=== PATIENT | female | born 1940 | race Caucasian/White ===

== ENCOUNTER 2018-09-23 11:06 | Outpatient (CLI) | payer MEDICARE ==
--- NOTE | 2018-09-23 12:29 | BD ---
DEXA BONE DENSITOMETRY: (Dual energy X-ray Absorptiometry) 09/23/2018 HISTORY: A 77-year-old postmenopausal white female for baseline, age-related osteoporosis screening examinatio n. Height 62 in. Weight 140 lbs. Age of menopause 34 years. COMPARISON: None available. FINDINGS: The bone mineral density (BMD) is given in grams per square centimeter (g/cm2): LUMBAR SPINE: BMD(g/cm2) T-score Z-score L1: 1.011 0.2 2.5 L2: 1.198 1.5 4.2 L3: 1.314 2.1 4.8 L4: 1.478 3.8 6.6 Total: 1.251 1.9 4.5 HIP: Femoral neck: 0.598 -2.3 0.0 Total: 0.890 -0.4 1.6 FRAX WHO Fracture Risk Assessment Tool: 10 Year Fracture Risk * Major osteoporotic fracture: 41% Hip fracture: 29% Reported Risk Factors: [place](), Neck BMD=0.598, BMI=25.6, parental factor, and rheumatoid arthritis. * Fracture probability is calculated for an untreated patient. Fracture probability may be lower if the patient has received treatment. IMPRESSION: 1) The mean bone mineral density of the lumbar spine is normal. Fracture risk is not increased. 2) The bone mineral density of the femoral neck is osteopenic. Fracture risk is increased. LUCY Barr POS: [facility]
== END 2018-09-23 11:07 | disposition home or self-care (01) ==
LOC: BICMAMMO 11:06
PROVIDERS: ATTEND Family Medicine
DX: Z13.820 Encounter for screening for osteoporosis (principal); M85.859 Other specified disorders of bone density and structure, unspecified thigh; Z78.0 Asymptomatic menopausal state
CPT/HCPCS: 77080

== ENCOUNTER 2018-10-22 14:02 | Emergency (ER) | payer MEDICARE ==
[2018-10-22 16:33] LABS: #Basophils 0.1 thou/uL (0.0-0.2); #Eosinphils 0.1 thou/uL (0.0-0.7); #Lymphocytes 1.4 thou/uL (1.20-3.40); #Monocytes 0.8 thou/uL (0.11-0.59); #Neutrophils 3.3 thou/uL (1.40-6.50); %Basophils 1.3 % (0.0-1.0); %Lymphocytes 24.2 % (21.0-51.0); %Monocytes 13.7 % (0.0-10.0); %Neutrophils 58.8 % (42.0-75.0); Hemoglobin 12.9 g/dL (12.0-16.0); Mean Corpuscular HGB CONC 32.6 g/dL (32.0-36.0); Mean Corpuscular Hemoglobin 32.3 pg (27.0-31.0); Mean Corpuscular Volume 99.3 fL (78.0-98.0); Mean Platelet Volume 6.3 fL (7.4-10.4); Platelet Count 169 thou/uL (130-400); RBC Distribution Width 13.3 % (11.5-14.5); Red Blood Cell (RBC) Count 3.99 mill/uL (4.20-5.40); White Blood Cell (WBC) Count 5.7 thou/uL (4.8-10.8)
[2018-10-22 16:53] LABS: ALT (SGPT) 11 U/L (8-55); AST (SGOT) 22 U/L (5-34); Albumin 4.3 g/dL (3.4-4.8); Alkaline Phosphatase 63 U/L (40-150); Anion Gap 16 mmol/L (10-20); BUN (Urea Nitrogen) 16 mg/dL (9.8-20.1); Bilirubin, Total 0.4 mg/dL (0.2-1.2); Calc. Creatinine Clearance 0 mL/min (70-130); Calcium 10.5 mg/dL (7.8-10.44); Carbon Dioxide 25 mmol/L (23-31); Chloride 103 mmol/L (98-107); Estimated GFR-MDRD 65; Globulin 3.5 g/dL (2.4-3.5); Glucose 104 mg/dL (83-110); Potassium 4.5 mmol/L (3.5-5.1); Protein, Total 7.8 g/dL (6.0-8.3); Sodium 139 mmol/L (136-145)
[2018-10-22 18:43] LABS: Bilirubin Negative (Negative); Blood, Urine Negative (Negative); Clarity CLEAR (Clear); Glucose, Urine (Dipstick) Negative (Negative); Leukocyte Trace (Negative); Nitrite Negative (Negative); Protein, Urine (Dipstick) Negative (Neg-Trace); Urobilinogen 0.2 mg/dL (0.2-1.0)
[2018-10-22 18:45] LABS: Bacteria/HPF None Seen HPF (None Seen); Hyaline Casts/LPF 0-3 HYALINE CAST LPF (0-3 Hyaline); Pathc Cast-AUWi Flag 0.87 (0-2.49); RBC/HPF 0-3 HPF (0-3); WBC/HPF 0-3 HPF (0-3)
== END 2018-10-22 19:34 | disposition home or self-care (01) ==
LOC: ERS 14:02
DX: R10.9 Unspecified abdominal pain (principal); M25.552 Pain in left hip; F41.9 Anxiety disorder, unspecified; E11.9 Type 2 diabetes mellitus without complications; E78.5 Hyperlipidemia, unspecified; J44.9 Chronic obstructive pulmonary disease, unspecified; I25.10 Atherosclerotic heart disease of native coronary artery without angina pectoris; I10 Essential (primary) hypertension; F32.9 Major depressive disorder, single episode, unspecified; Z87.891 Personal history of nicotine dependence; Z79.82 Long term (current) use of aspirin; Z79.899 Other long term (current) drug therapy
CPT/HCPCS: 36415; 80053; 81003; 81015; 85025; 93005; 99284

== ENCOUNTER 2019-02-18 17:35 | Emergency (ER) | payer MEDICARE ==
[2019-02-18] MEDS ORDERED: Ketorolac Tromethamine 30 MG/ML VIAL ONE (19:55)
--- NOTE | 2019-02-18 20:11 | RAD ---
Radiograph left humerus 2 views: HISTORY: 78-year-old female with left arm pain FINDINGS: Severe DJD at glenohumeral joint and moderate-severe DJD at AC joint. No fracture, permeative lesion, osteolytic lesion, osteoblastic lesion, or periostitis, involving humerus. IMPRESSION: Severe osteoarthrosis of the glenohumeral joint and moderate to severe osteoarthrosis of the acromioc lavicular joint, of the left shoulder.
--- NOTE | 2019-02-18 20:12 | RAD ---
Radiograph left shoulder 3 views: HISTORY: 78-year-old female with left shoulder pain FINDINGS: No acute fracture. No dislocation. No subluxation. Severe joint space narrowing, moderate sclerosis, and moderate osteophytosis, of glenohumeral joint. Bony hypertrophy of AC joint. IMPRESSION: 1. Severe osteoarthrosis of glenohumeral joint. 2. Moderate-severe osteoarthrosis of acromioclavicular joint. 3. No fracture.
== END 2019-02-18 20:35 | disposition home or self-care (01) ==
LOC: ERS 17:35
DX: M19.012 Primary osteoarthritis, left shoulder (principal); E11.9 Type 2 diabetes mellitus without complications; E78.5 Hyperlipidemia, unspecified; J44.9 Chronic obstructive pulmonary disease, unspecified; I10 Essential (primary) hypertension; F41.9 Anxiety disorder, unspecified; F32.9 Major depressive disorder, single episode, unspecified; Z79.899 Other long term (current) drug therapy; Z79.82 Long term (current) use of aspirin
CPT/HCPCS: 96372; J1885

== ENCOUNTER 2019-08-03 12:02 | Outpatient (CLI) | payer MEDICARE ==
--- NOTE | 2019-08-03 16:31 | RAD ---
CHEST TWO VIEWS: History: Cough for months, wheezing. Comparison: 11-19-18 FINDINGS: Post op sternotomy. 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 No confluent pneumonia, overt edema, or pleural effusion. No cardiomegaly. IMPRESSION: Mild stable chronic changes. Post op sternotomy. Atherosclerosis of the aorta. POS: [facility]
== END 2019-08-03 12:03 | disposition home or self-care (01) ==
LOC: BICRAD 12:02
PROVIDERS: ATTEND Family Medicine
DX: R05 Cough (principal); I70.0 Atherosclerosis of aorta; J98.4 Other disorders of lung; Z98.890 Other specified postprocedural states
CPT/HCPCS: 36415; 71046; 80053; 84443; 85025; 85652

== ENCOUNTER 2019-08-11 14:19 | Outpatient (CLI) | payer MEDICARE ==
--- NOTE | 2019-08-11 15:01 | RAD ---
EXAM: 3 views of the thoracic spine HISTORY: Thoracic spine pain COMPARISON: None FINDINGS: 3 views of the thoracic spine shows normal height and alignment of the vertebral bodies wit hout fracture or subluxation. Intervertebral there is are narrowed throughout the thoracic spine with mild surrounding osteophytes. IMPRESSION: Degenerative changes of the thoracic spine without acute osseous abnormality.
--- NOTE | 2019-08-11 15:07 | RAD ---
CERVICAL SPINE 7 VIEWS: HISTORY: Cervicalgia. FINDINGS: There is mild wedging of C6 vertebra which is chronic. Large osteophytes are seen at C6-7 and C7-T1. Loss of disk space at C6-7 and C7-T1 and mild loss of disk space at the other cervical levels. Sli ght anterolisthesis noted at C3-4, C4-5, and C5-6. Posterior spondylosis is prominent at C5-6 and C6-7. Facet hypertrophy is noted. Foraminal stenosis is prominent at C3-4 and C4-5. Anterolisthesis at C4-5 and C5-6 exacerbates with flexion. IMPRESSION: Moderate to severe degenerative changes of the cervical spine as detailed above. POS: [facility]
== END 2019-08-11 14:20 | disposition home or self-care (01) ==
LOC: BICRAD 14:19
PROVIDERS: ATTEND Internal Medicine Rheumatology
DX: M54.6 Pain in thoracic spine (principal); M54.2 Cervicalgia; M47.814 Spondylosis without myelopathy or radiculopathy, thoracic region; M47.812 Spondylosis without myelopathy or radiculopathy, cervical region
CPT/HCPCS: 72052; 72072

== ENCOUNTER 2019-08-13 10:25 | Outpatient (CLI) | payer MEDICARE ==
--- NOTE | 2019-08-13 11:00 | ULT ---
ULTRASOUND ABDOMEN: HISTORY: Epigastric pain FINDINGS: The liver demonstrates coarsened increased echogenicity consistent with fatty infiltration. No focal mass or intrahepatic ductal dilatation is seen. A 6 x 5 mm shadowing calculus is seen in the gallbladder without gallbladder wall thickening or pericholecystic fluid. The spleen, pancreas, kidneys and visualized portions of the aorta and IVC appear normal. The common duct measures 3 mm in diameter. No free fluid is seen. IMPRESSION: 1. Fatty liver 2. Cholelithiasis
== END 2019-08-13 10:26 | disposition home or self-care (01) ==
LOC: BICULT 10:25
PROVIDERS: ATTEND Family Medicine
DX: R10.13 Epigastric pain (principal); K80.20 Calculus of gallbladder without cholecystitis without obstruction; K76.0 Fatty (change of) liver, not elsewhere classified
CPT/HCPCS: 93975

== ENCOUNTER 2020-04-12 11:38 | Outpatient (CLI) | payer MEDICARE ==
--- NOTE | 2020-04-12 12:06 | RAD ---
XR Hip Rt 2-3 View INDICATION: Right hip pain after fall COMPARISON: None FINDINGS: Bones: There is mild diffuse osteopenia. There is enthesopathic change off the anterior right hemipel vis and right ischial tuberosity. No acute fracture is demonstrated. Hip joint: There is mild osteoarthrosis of the right hip. SI joints and symphysis pubis: There is moderate degenerative change of the right SI joint. There is chondrocalcinosis with is a symphysis pubis with mild degenerative change. Intrapelvic contents: Visualized bowel gas pattern is within normal limits. Surrounding soft tissues: There are moderate vascular calcifications seen involving the visualized vasculature. IMPRESSION: 1. No acute osseous abnormality.
== END 2020-04-12 11:39 | disposition home or self-care (01) ==
LOC: BICRAD 11:38
PROVIDERS: ATTEND Nurse Practitioner Family
DX: W17.89XA Other fall from one level to another, initial encounter (principal)

== ENCOUNTER 2020-08-01 12:57 | Emergency (ER) | payer MEDICARE ==
[2020-08-01 13:50] LABS: #Basophils 0.1 thou/uL (0.0-0.2); #Eosinphils 0.1 thou/uL (0.0-0.7); #Lymphocytes 1.2 thou/uL (1.20-3.40); #Monocytes 0.9 thou/uL (0.11-0.59); #Neutrophils 5.9 thou/uL (1.40-6.50); %Basophils 0.8 % (0.0-1.0); %Eosinophils 0.7 % (0.0-10.0); %Lymphocytes 14.6 % (21.0-51.0); %Neutrophils 72.9 % (42.0-75.0); Hemoglobin 11.3 g/dL (12.0-16.0); Mean Corpuscular Hemoglobin 33.2 pg (27.0-31.0); Mean Platelet Volume 8.4 fL (7.4-10.4); Platelet Count 223 thou/uL (130-400); RBC Distribution Width 12.6 % (11.5-14.5); Red Blood Cell (RBC) Count 3.39 mill/uL (4.20-5.40); White Blood Cell (WBC) Count 8.1 thou/uL (4.8-10.8)
[2020-08-01] MEDS ORDERED: Iopamidol-370 76% 500 ML 1 ML ONE (13:53)
[2020-08-01 14:17] LABS: ALT (SGPT) 10 U/L (8-55); AST (SGOT) 25 U/L (5-34); Albumin 3.9 g/dL (3.4-4.8); Alkaline Phosphatase 68 U/L (40-110); Anion Gap 21 mmol/L (10-20); BUN (Urea Nitrogen) 13 mg/dL (9.8-20.1); Bilirubin, Total 0.4 mg/dL (0.2-1.2); Calc. Creatinine Clearance 0 mL/min (70-130); Calcium 9.8 mg/dL (7.8-10.44); Carbon Dioxide 13 mmol/L (23-31); Chloride 107 mmol/L (98-107); Estimated GFR-MDRD 48; Globulin 3.1 g/dL (2.4-3.5); Glucose 71 mg/dL (83-110); Lipase 4 U/L (8-78); Potassium 4.2 mmol/L (3.5-5.1); Sodium 137 mmol/L (136-145)
--- NOTE | 2020-08-01 16:49 | CT ---
CT ABDOMEN AND PELVIS WITH IV CONTRAST: Date: 08/01/2020 HISTORY: 79-year-old female with abdominal pain and diarrhea. FINDINGS: There are mild dependent changes in the lung bases. No calcified gallstones are seen. The liver, sple en, pancreas, adrenal glands, and kidneys are unremarkable. No free air, free fluid, or lymphadenopathy is seen in the abdomen or pelvis. There are vascular calc ifications without evidence of aneurysmal dilatation of the abdominal aorta. The patient is post hyst erectomy. Degenerative changes are present in the spine. There is minimal anterolisthesis of L5 over S1. An abnormal appendix is not visualized. IMPRESSION: No evidence of acute process. POS: [facility]
[2020-08-01 17:03] LABS: Acetaminophen Less than 6.0 mcg/mL (10.0-30.0); Alcohol Less than 10 mg/dL (Less than 10); Salicylate Less than 8.0 mg/dL (15.0-30.0)
[2020-08-01 17:07] LABS: Bilirubin Negative (Negative); Blood, Urine Negative (Negative); Clarity Clear (Clear); Glucose, Urine (Dipstick) Normal (Negative); Ketone, Urine 10 mg/dL (Negative); Leukocyte Negative Leu/uL (Negative); Nitrite Negative (Negative); Protein, Urine (Dipstick) 10 mg/dL (Neg-Trace); Specific Gravity, Urine 1.034 (1.002-1.036); Urobilinogen Normal mg/dL (Less than 2); pH, Urine 5.5 (5.0-9.0)
[2020-08-01 17:13] LABS: Amphetamine Not Detected (NotDetected); Barbiturates Screen Not Detected (NotDetected); Benzodiazepine Screen Not Detected (NotDetected); Cocaine Metabolite Screen Not Detected (NotDetected); Medtox Control Line Valid? VALID (VALID); Medtox Reader # READER 1; Methadone Not Detected (NotDetected); Methamphetamine Not Detected (NotDetected); Opiate Screen Not Detected (NotDetected); Oxycodone Screen Not Detected (NotDetected); Phencyclidine (PCP) Not Detected (NotDetected); THC/Cannabinoid Screen Not Detected (NotDetected); Tricyclic Screen Not Detected (NotDetected)
--- NOTE | 2020-08-27 13:04 | EKG ---
Test Reason : Blood Pressure : / mmHG Vent. Rate : 086 BPM Atrial Rate : 086 BPM P-R Int : 144 ms QRS Dur : 082 ms QT Int : 356 ms P-R-T Axes : 051 053 047 degrees QTc Int : 426 ms Normal sinus rhythm Normal ECG Confirmed by RENETTA ROBERT DO ([id number]), senior editor ROSITA ORTIZ ([id number]) on 08/27/2020 1:04:07 PM Referred By: Confirmed By:RENETTA ROBERT DO
== END 2020-08-01 20:39 | disposition home or self-care (01) ==
LOC: ERS 12:57
DX: R19.7 Diarrhea, unspecified (principal); F32.9 Major depressive disorder, single episode, unspecified; E11.9 Type 2 diabetes mellitus without complications; E78.5 Hyperlipidemia, unspecified; M06.9 Rheumatoid arthritis, unspecified; J44.9 Chronic obstructive pulmonary disease, unspecified; I10 Essential (primary) hypertension; F41.9 Anxiety disorder, unspecified; Z87.891 Personal history of nicotine dependence; Z79.82 Long term (current) use of aspirin; Z79.899 Other long term (current) drug therapy
CPT/HCPCS: 36415; 51701; 74177; 80053; 80306; 80307; 81003; 83690; 84484; 85025; 87045; 87046; 87324; 87427; 87449; 93005; 94760; Q9967

== ENCOUNTER 2020-10-12 03:01 | Emergency (ER) | payer MEDICARE ==
[2020-10-12 03:47] LABS: #Eosinphils 0.1 thou/uL (0.0-0.7); #Lymphocytes 1.2 thou/uL (1.20-3.40); #Monocytes 1.1 thou/uL (0.11-0.59); #Neutrophils 5.9 thou/uL (1.40-6.50); %Basophils 0.5 % (0.0-1.0); %Eosinophils 1.2 % (0.0-10.0); %Lymphocytes 14.5 % (21.0-51.0); %Monocytes 13.3 % (0.0-10.0); %Neutrophils 70.5 % (42.0-75.0); Hemoglobin 7.8 g/dL (12.0-16.0); Mean Corpuscular Hemoglobin 31.3 pg (27.0-31.0); Mean Platelet Volume 8.2 fL (7.4-10.4); Platelet Count 231 thou/uL (130-400); RBC Distribution Width 15.7 % (11.5-14.5); White Blood Cell (WBC) Count 8.4 thou/uL (4.8-10.8)
[2020-10-12 04:07] LABS: ALT (SGPT) 13 U/L (8-55); AST (SGOT) 22 U/L (5-34); Albumin 3.1 g/dL (3.4-4.8); Alkaline Phosphatase 52 U/L (40-110); Anion Gap 16 mmol/L (10-20); BUN (Urea Nitrogen) 16 mg/dL (9.8-20.1); Bilirubin, Total 0.4 mg/dL (0.2-1.2); Calc. Creatinine Clearance 0 mL/min (70-130); Calcium 7.6 mg/dL (7.8-10.44); Carbon Dioxide 22 mmol/L (23-31); Chloride 103 mmol/L (98-107); Globulin 2.8 g/dL (2.4-3.5); Glucose 92 mg/dL (83-110); Potassium 3.7 mmol/L (3.5-5.1); Protein, Total 5.9 g/dL (6.0-8.3); Sodium 137 mmol/L (136-145)
[2020-10-12 04:30] LABS: Bilirubin Negative (Negative); Blood, Urine Negative (Negative); Clarity Clear (Clear); Glucose, Urine (Dipstick) Normal (Negative); Ketone, Urine Negative (Negative); Leukocyte Negative Leu/uL (Negative); Nitrite Negative (Negative); Protein, Urine (Dipstick) Negative (Neg-Trace); Specific Gravity, Urine 1.009 (1.002-1.036); Urobilinogen Normal mg/dL (Less than 2); pH, Urine 6.5 (5.0-9.0)
[2020-10-12] MEDS ORDERED: Diphenoxylate HCl/Atropine Tablet PO PRN (04:31)
[2020-10-12] MEDS ORDERED: Diphenoxylate HCl/Atropine Tablet ONE (05:34)
== END 2020-10-12 06:32 ==
LOC: ERS 03:01
DX: K52.9 Noninfective gastroenteritis and colitis, unspecified (principal); E86.0 Dehydration; E11.9 Type 2 diabetes mellitus without complications; E78.5 Hyperlipidemia, unspecified; M06.9 Rheumatoid arthritis, unspecified; J44.9 Chronic obstructive pulmonary disease, unspecified; E03.9 Hypothyroidism, unspecified; Z87.891 Personal history of nicotine dependence
CPT/HCPCS: 36415; 80053; 81003; 85025; 99284

== ENCOUNTER 2020-11-02 17:32 | Emergency (ER) | payer MEDICARE ==
[2020-11-02 21:14] LABS: #Basophils 0.1 thou/uL (0.0-0.2); #Lymphocytes 0.5 thou/uL (1.20-3.40); #Monocytes 0.9 thou/uL (0.11-0.59); #Neutrophils 7.9 thou/uL (1.40-6.50); %Basophils 0.5 % (0.0-1.0); %Lymphocytes 5.6 % (21.0-51.0); %Monocytes 9.1 % (0.0-10.0); %Neutrophils 84.7 % (42.0-75.0); Hemoglobin 9.7 g/dL (12.0-16.0); Mean Corpuscular HGB CONC 32.1 g/dL (32.0-36.0); Mean Corpuscular Hemoglobin 31.7 pg (27.0-31.0); Mean Corpuscular Volume 98.9 fL (78.0-98.0); Mean Platelet Volume 9.1 fL (7.4-10.4); Platelet Count 274 thou/uL (130-400); RBC Distribution Width 18.1 % (11.5-14.5); Red Blood Cell (RBC) Count 3.07 mill/uL (4.20-5.40); White Blood Cell (WBC) Count 9.3 thou/uL (4.8-10.8)
[2020-11-02 21:35] LABS: ALT (SGPT) 15 U/L (8-55); AST (SGOT) 24 U/L (5-34); Albumin 3.7 g/dL (3.4-4.8); Alkaline Phosphatase 60 U/L (40-110); Anion Gap 19 mmol/L (10-20); BUN (Urea Nitrogen) 25 mg/dL (9.8-20.1); Bilirubin, Total 0.4 mg/dL (0.2-1.2); Calc. Creatinine Clearance 0 mL/min (70-130); Calcium 9.5 mg/dL (7.8-10.44); Carbon Dioxide 20 mmol/L (23-31); Chloride 106 mmol/L (98-107); Globulin 3.2 g/dL (2.4-3.5); Glucose 139 mg/dL (83-110); Potassium 4.2 mmol/L (3.5-5.1); Protein, Total 6.9 g/dL (6.0-8.3); Sodium 141 mmol/L (136-145)
[2020-11-02 22:12] LABS: Bacteria/HPF None Seen HPF (None Seen); Bilirubin Negative (Negative); Blood, Urine Negative (Negative); Clarity Clear (Clear); Glucose, Urine (Dipstick) Normal (Negative); Ketone, Urine Trace mg/dL (Negative); Leukocyte Negative Leu/uL (Negative); Nitrite Negative (Negative); Protein, Urine (Dipstick) 70 mg/dL (Neg-Trace); RBC/HPF 0-3 HPF (0-3); Renal Epithelial 0-3 HPF (None Seen); Specific Gravity, Urine 1.027 (1.002-1.036); Squamous Epithelial 0-3 HPF (0-3); Urobilinogen Normal mg/dL (Less than 2); WBC/HPF 0-3 HPF (0-3); pH, Urine 5.5 (5.0-9.0)
--- NOTE | 2020-11-05 10:10 | EKG ---
Test Reason : Blood Pressure : / mmHG Vent. Rate : 088 BPM Atrial Rate : 088 BPM P-R Int : 142 ms QRS Dur : 074 ms QT Int : 338 ms P-R-T Axes : 032 038 088 degrees QTc Int : 408 ms Normal sinus rhythm Nonspecific T wave abnormality Abnormal ECG Confirmed by TAWNYA JACK, ALESSANDRO Horvath ([id number]), industrial editor ROSITA ORTIZ ([id number]) on 11/05/2020 10:10:11 AM Referred By: Confirmed By:ALESSANDRO BOWLING MD
== END 2020-11-02 23:23 | disposition home or self-care (01) ==
LOC: ERS 17:32
DX: E86.0 Dehydration (principal); E03.9 Hypothyroidism, unspecified; I10 Essential (primary) hypertension; J45.909 Unspecified asthma, uncomplicated; Z95.1 Presence of aortocoronary bypass graft; Z87.891 Personal history of nicotine dependence
CPT/HCPCS: 36415; 51701; 80053; 81003; 81015; 85025; 87324; 87449; 93005

== ENCOUNTER 2020-12-11 00:25 | Emergency (ER) | payer MEDICARE ==
[2020-12-11] MEDS ORDERED: Ketorolac Tromethamine 30 MG/ML VIAL ONE (03:16)
--- NOTE | 2020-12-11 08:38 | RAD ---
XR Hip Lt 2-3 View History: Back pain Comparison: None. Findings: Obturator rings are intact. Enthesopathic change along the left greater trochanter. Soft ti ssue calcifications of the left 5. Asymmetric narrowing right SI joint relative to the left with sclerosis. Impression: Degenerative findings. No acute fracture of the pelvis.
--- NOTE | 2020-12-11 10:29 | CT ---
PRELIMINARY REPORT/[facility]/EMERGENCY AFTER HOURS PROCEDURE: EXAM: CT Lumbar Spine Without Intravenous Contrast. CLINICAL HISTORY: BACK PAIN TECHNIQUE: Axial computed tomography images of the lumbar spine without intravenous contrast. Sagitta l and coronal reformations performed. COMPARISON: None provided. FINDINGS: BONES: No acute fracture or focal osseous lesion. DISCS/DEGENERATIVE CHANGES: Multilevel degenerative changes of the lower lumbar spine with severe los s of intervertebral disc from L2/3 through L5/S1, calcified disc bulges and anterior-posterior osteop hytes. Grade 1 anterolisthesis of L5 and S1. Multilevel partially calcified disc bulges and ligamen ciarra hypertrophy cause severe canal stenosis from L1/2 through L5/S1. SOFT TISSUES: The paraspinal soft tissues are unremarkable. IMPRESSION: No acute lumbar spine fracture. Chronic findings as described above with severe canal st enosis throughout the lower lumbar spine. 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 FINDINGS: The vertebral bodies are normal in height. Bones are diffusely demineralized. There is severe degen erative disk narrowing from the L2-3 to the L5-S1 level. Prominent degenerative facet changes are se en. There is no significant periaortic adenopathy and the visualized portions of the kidneys appear unremarkable. Suggestion of some slight bladder wall thickening. T12-L1: Unremarkable. L1-2: The canal appears mildly stenotic with disk bulge and facet hypertrophic change. L2-3: There is a moderate degree of canal stenosis with disk bulge, facet, and ligamentous hypertrop hic change. There is also some mild to moderate left-sided foraminal narrowing. Below the level of the disk space is what appears to be a combination of osteophytic change and what is probably calcifi ed disk which may represent disk protrusion. This is associated with a more severe degree of canal n arrowing than seen at the disk level itself. L3-4: Disk bulge and facet hypertrophic change at this level is associated with a very severe degree of canal narrowing. There is moderate left-sided foraminal stenosis. L4-5: Severe stenosis with disk bulge, facet, and ligamentous hypertrophic changes seen at this leve l. No significant foraminal narrowing. L5-S1: Minimal spondylolisthesis present at this level. Severe canal stenosis and mild bilateral fo raminal narrowing. IMPRESSION: 1. No evidence of any acute compression injury. Multilevel areas of severe canal stenosis. 2. This report is in agreement with the temporary report issued by [facility]. POS: [facility]
== END 2020-12-11 04:07 ==
LOC: ERS 00:25
DX: M54.42 Lumbago with sciatica, left side (principal); M25.552 Pain in left hip; E03.9 Hypothyroidism, unspecified; I10 Essential (primary) hypertension; J44.9 Chronic obstructive pulmonary disease, unspecified; K21.9 Gastro-esophageal reflux disease without esophagitis; J45.909 Unspecified asthma, uncomplicated; I25.10 Atherosclerotic heart disease of native coronary artery without angina pectoris; Z95.1 Presence of aortocoronary bypass graft; M19.90 Unspecified osteoarthritis, unspecified site; Z87.891 Personal history of nicotine dependence
CPT/HCPCS: 72131; 96372; J1885

== ENCOUNTER 2021-05-12 11:14 | Day surgery (SDC) | payer MEDICARE ==
[2021-05-11 11:33] VITALS: BMI 25.0
[2021-05-12] MEDS ORDERED: Lidocaine 1% PF 5 ML VIAL ONE (13:30)
[2021-05-12] MEDS ORDERED: PROPOFOL 200 MG/20 ML VIAL ONE (13:30)
[2021-05-12] MEDS ORDERED: Fentanyl 100 MCG/2 ML VIAL ONE (14:26)
[2021-05-12] MEDS ORDERED: Albuterol Sulfate 1.25 MG/3 ML NEB ONE (15:13)
== END 2021-05-12 16:29 | disposition home or self-care (01) ==
LOC: MRI 11:14
PROVIDERS: ATTEND Anesthesiology Pain Medicine
DX: M51.16 Intervertebral disc disorders with radiculopathy, lumbar region (principal); M48.05 Spinal stenosis, thoracolumbar region; M48.061 Spinal stenosis, lumbar region without neurogenic claudication; M43.16 Spondylolisthesis, lumbar region; Z79.82 Long term (current) use of aspirin; Z79.899 Other long term (current) drug therapy; Z88.8 Allergy status to other drugs, medicaments and biological substances
CPT/HCPCS: 72148; J3010

== ENCOUNTER 2021-06-07 23:43 | Emergency (ER) | payer MEDICARE, SELFPAY ==
[2021-06-08] MEDS ORDERED: Aspirin Chewable 81 MG TAB ONE (00:09)
[2021-06-08] MEDS ORDERED: methylPREDNISolone Sod Succ/PF 125 MG/2 ML VIAL ONE (00:09)
[2021-06-08 00:20] LABS: Mean Corpuscular HGB CONC 32.6 g/dL (32.0-36.0); Mean Corpuscular Hemoglobin 32.7 pg (27.0-31.0); Mean Platelet Volume 9.8 fL (7.4-10.4); Platelet Count 142 thou/uL (130-400); RBC Distribution Width 14.4 % (11.5-14.5); Red Blood Cell (RBC) Count 3.35 mill/uL (4.20-5.40); White Blood Cell (WBC) Count 6.7 thou/uL (4.8-10.8)
[2021-06-08 00:32] LABS: ALT (SGPT) 13 U/L (8-55); AST (SGOT) 23 U/L (5-34); Albumin 3.6 g/dL (3.4-4.8); Alkaline Phosphatase 69 U/L (40-110); Anion Gap 16 mmol/L (10-20); BUN (Urea Nitrogen) 28 mg/dL (9.8-20.1); Bilirubin, Total 0.3 mg/dL (0.2-1.2); Calc. Creatinine Clearance 0 mL/min (70-130); Calcium 9.6 mg/dL (7.8-10.44); Carbon Dioxide 22 mmol/L (23-31); Chloride 103 mmol/L (98-107); Glucose 115 mg/dL (83-110); Potassium 4.4 mmol/L (3.5-5.1); Protein, Total 6.6 g/dL (5.8-8.1); Sodium 137 mmol/L (136-145)
[2021-06-08 00:36] LABS: Band 1 % (5-11); Lymphocytes 25 % (21-51); MDiff Complete? YES; Monocytes 14 % (0-10); Neutrophil 59 % (42-75)
[2021-06-08] MEDS ORDERED: Oxymetazoline HCl 0.05% (30 ML BOT) ONE (00:53)
== END 2021-06-08 01:31 | disposition home or self-care (01) ==
LOC: ERS 23:43
DX: R06.02 Shortness of breath (principal); R05 Cough; E03.9 Hypothyroidism, unspecified; E78.5 Hyperlipidemia, unspecified; I10 Essential (primary) hypertension; J44.9 Chronic obstructive pulmonary disease, unspecified; K21.9 Gastro-esophageal reflux disease without esophagitis; I25.10 Atherosclerotic heart disease of native coronary artery without angina pectoris; M19.90 Unspecified osteoarthritis, unspecified site; Z87.891 Personal history of nicotine dependence
CPT/HCPCS: 36415; 71045; 80053; 84484; 85025; 93005; 94640; 96374; J2930; J7620

== ENCOUNTER 2023-04-01 12:16 | Inpatient (IN) | payer MEDICARE ==
[2023-04-01 12:57] LABS: #Basophils 0.1 thou/uL (0.0-0.2); #Eosinphils 0.1 thou/uL (0.0-0.7); #Monocytes 1.2 thou/uL (0.11-0.59); #Neutrophils 6.9 thou/uL (1.40-6.50); %Basophils 0.7 % (0.0-1.0); %Eosinophils 1.2 % (0.0-10.0); %Lymphocytes 9.4 % (21.0-51.0); %Monocytes 13.4 % (0.0-10.0); %Neutrophils 74.9 % (42.0-75.0); Hemoglobin 8.4 g/dL (12.0-16.0); Mean Corpuscular HGB CONC 31.7 g/dL (32.0-36.0); Mean Corpuscular Hemoglobin 33.3 pg (27.0-31.0); Mean Corpuscular Volume 105.2 fl (78.0-98.0); Mean Platelet Volume 10.4 fL (7.4-10.4); Platelet Count 230 10x3/uL (130-400); RBC Distribution Width 15.5 % (11.5-14.5); Red Blood Cell (RBC) Count 2.52 mill/uL (4.20-5.40); White Blood Cell (WBC) Count 9.2 10x3/uL (4.8-10.8)
[2023-04-01 13:15] LABS: PTT 24.9 sec (22.9-36.1); Prothrombin Time 13.4 sec (12.0-14.7)
[2023-04-01 13:27] LABS: ALT (SGPT) 9 U/L (8-55); AST (SGOT) 17 U/L (5-34); Albumin 3.4 g/dL (3.4-4.8); Alkaline Phosphatase 63 U/L (40-110); Anion Gap 12 mmol/L (10-20); BUN (Urea Nitrogen) 18 mg/dL (9.8-20.1); Bilirubin, Total 0.2 mg/dL (0.2-1.2); Calc. Creatinine Clearance 0 mL/min (70-130); Calcium 9.1 mg/dL (7.8-10.44); Carbon Dioxide 28 mmol/L (23-31); Chloride 102 mmol/L (98-107); Estimated GFR 56; Globulin 2.7 g/dL (2.4-3.5); Glucose 116 mg/dL (83-110); Lipase 6 U/L (8-78); Magnesium 1.4 mg/dL (1.6-2.6); Potassium 3.5 mmol/L (3.5-5.1); Protein, Total 6.1 g/dL (5.8-8.1); Sodium 138 mmol/L (136-145)
[2023-04-01] MEDS ORDERED: Magnesium 2 GM/50 ML BAG (IN WATER) ONE (14:15)
[2023-04-01 16:40] LABS: Bacteria/HPF None Seen HPF (None Seen); Bilirubin Negative (Negative); Blood, Urine Negative (Negative); CAUTI Indications for Culture Urological Procedure; Clarity Clear (Clear); Glucose, Urine (Dipstick) Normal (Negative); Ketone, Urine Negative (Negative); Leukocyte Negative Leu/uL (Negative); Nitrite Negative (Negative); Protein, Urine (Dipstick) Negative (Neg-Trace); RBC/HPF 0-3 HPF (0-3); Squamous Epithelial 0-3 HPF (0-3); Urobilinogen Normal mg/dL (Less than 2); WBC/HPF 0-3 HPF (0-3)
[2023-04-01 16:51] LABS: Urine Culture Reflex Yes Yes
[2023-04-01] MEDS ORDERED: Polyethylene Glycol 3350 17 GM Packet PO PRN (17:09)
[2023-04-01] MEDS ORDERED: Albuterol 200 PUFF (6.7GM INHALER) INH PRN (17:09)
[2023-04-01] MEDS ORDERED: Ondansetron ODT 4 MG TAB PO PRN (17:09)
[2023-04-01 17:11] LABS: SARS-CoV-2 NAA Rapid Test Not Detected (NotDetected)
[2023-04-01] MEDS: Ipratropium/Albuterol 3 ML NEB NEB SCH (19:00)
[2023-04-01 19:07] LABS: Iron 34 ug/dL (50-170); Iron Binding Capacity, Total 199 mcg/dL (265-497)
[2023-04-01 19:26] LABS: Ferritin 456.91 ng/mL (10-291)
[2023-04-01 19:27] VITALS: BMI 23.2
[2023-04-01] MEDS: Acetaminophen 325 MG TAB PO SCH (19:58)
[2023-04-01] MEDS: Montelukast Sodium 10 mg Tablet PO SCH (20:00)
[2023-04-01] MEDS: Donepezil HCl 5 MG TAB PO SCH (20:00)
[2023-04-01] MEDS: Furosemide 20 MG TAB PO SCH (20:00)
[2023-04-01] MEDS: Latanoprost 0.005% Ophth Soln 2.5 ml Bottle EA EYE SCH (21:24)
[2023-04-02] MEDS: Ipratropium/Albuterol 3 ML NEB NEB SCH ×2 (00:20→09:21)
[2023-04-02] MEDS: Acetaminophen 325 MG TAB PO SCH ×5 (00:47→23:58)
[2023-04-02 07:00] LABS: #Basophils 0.1 thou/uL (0.0-0.2); #Eosinphils 0.1 thou/uL (0.0-0.7); #Neutrophils 7.7 thou/uL (1.40-6.50); %Basophils 0.7 % (0.0-1.0); %Eosinophils 1.1 % (0.0-10.0); %Lymphocytes 7.9 % (21.0-51.0); %Monocytes 10.2 % (0.0-10.0); %Neutrophils 79.8 % (42.0-75.0); Hemoglobin 9.1 g/dL (12.0-16.0); Mean Corpuscular HGB CONC 31.6 g/dL (32.0-36.0); Mean Corpuscular Hemoglobin 32.7 pg (27.0-31.0); Mean Corpuscular Volume 103.6 fl (78.0-98.0); Mean Platelet Volume 10.5 fL (7.4-10.4); Platelet Count 250 10x3/uL (130-400); RBC Distribution Width 15.4 % (11.5-14.5); Red Blood Cell (RBC) Count 2.78 mill/uL (4.20-5.40); White Blood Cell (WBC) Count 9.7 10x3/uL (4.8-10.8)
[2023-04-02 07:25] LABS: Anion Gap 13 mmol/L (10-20); BUN (Urea Nitrogen) 15 mg/dL (9.8-20.1); Calc. Creatinine Clearance 45 mL/min (70-130); Calcium 9.3 mg/dL (7.8-10.44); Carbon Dioxide 28 mmol/L (23-31); Chloride 104 mmol/L (98-107); Estimated GFR 68; Glucose 104 mg/dL (83-110); Potassium 3.5 mmol/L (3.5-5.1); Sodium 141 mmol/L (136-145)
[2023-04-02] MEDS ORDERED: Folic Acid 1 MG TAB PO SCH (09:00)
[2023-04-02] MEDS: Leflunomide 10 mg Tablet PO SCH (09:22)
[2023-04-02] MEDS: Furosemide 20 MG TAB PO SCH ×2 (09:22→19:59)
[2023-04-02] MEDS: Multivitamin W/ Minerals 1 TAB PO SCH (09:22)
[2023-04-02] MEDS: Sertraline 100 MG TAB PO SCH (09:22)
[2023-04-02] MEDS: CO Q-10 CAPSULE 100 MG PO SCH (09:22)
[2023-04-02] MEDS: Saccharomyces boulardii 250 MG CAP PO SCH (09:22)
[2023-04-02] MEDS: Valproic Acid 250 MG CAP PO SCH (09:22)
[2023-04-02] MEDS: sulfaSALAzine 500 MG TAB PO SCH (09:22)
[2023-04-02] MEDS: Aspirin Chewable 81 MG TAB PO SCH (09:22)
[2023-04-02] MEDS: Cyanocobalamin (Vitamin B-12) 1,000 MCG TAB PO SCH (09:22)
[2023-04-02] MEDS: Folic Acid 1 MG TAB PO SCH (09:23)
[2023-04-02] MEDS: Losartan 25 MG TAB PO SCH (09:23)
[2023-04-02] MEDS: Amlodipine 10 MG TAB PO SCH (09:23)
[2023-04-02] MEDS: Atorvastatin Calcium 40 MG TAB PO SCH (09:23)
[2023-04-02] MEDS: Meloxicam 15 MG TAB PO SCH (09:23)
[2023-04-02 10:13] LABS: Magnesium 1.8 mg/dL (1.6-2.6)
[2023-04-02] MEDS: Ipratropium Bromide 0.06% Nasal Inhaler 15ml EA NARE SCH (10:26)
[2023-04-02] MEDS ORDERED: Fidaxomicin 200 MG TAB PO SCH (12:45)
[2023-04-02 19:41] LABS: Campy jejuni + coli by PCR Negative (Negative); STEC Shiga Toxin 1+2 Negative (Negative); Salmonella spp. by PCR Negative (Negative); Shigella spp + EIEC by PCR Negative (Negative)
[2023-04-02] MEDS: Donepezil HCl 5 MG TAB PO SCH (19:59)
[2023-04-02] MEDS: Montelukast Sodium 10 mg Tablet PO SCH (19:59)
[2023-04-02] MEDS: Latanoprost 0.005% Ophth Soln 2.5 ml Bottle EA EYE SCH (19:59)
[2023-04-02] MEDS: Fidaxomicin 200 MG TAB PO SCH (21:15)
[2023-04-03] MEDS: Acetaminophen 325 MG TAB PO SCH ×5 (05:39→23:17)
[2023-04-03 06:20] LABS: Hemoglobin 9.6 g/dL (12.0-16.0); Manual Diff?? YES; Mean Corpuscular HGB CONC 31.4 g/dL (32.0-36.0); Mean Corpuscular Hemoglobin 33.1 pg (27.0-31.0); Mean Corpuscular Volume 105.5 fl (78.0-98.0); Mean Platelet Volume 10.5 fL (7.4-10.4); Platelet Count 244 10x3/uL (130-400); RBC Distribution Width 15.4 % (11.5-14.5); White Blood Cell (WBC) Count 4.9 10x3/uL (4.8-10.8)
[2023-04-03 06:23] LABS: Delete Auto Diff?? YES
[2023-04-03 06:40] LABS: Anion Gap 13 mmol/L (10-20); BUN (Urea Nitrogen) 12 mg/dL (9.8-20.1); Calc. Creatinine Clearance 48 mL/min (70-130); Calcium 9.4 mg/dL (7.8-10.44); Carbon Dioxide 27 mmol/L (23-31); Chloride 103 mmol/L (98-107); Estimated GFR 73; Glucose 101 mg/dL (83-110); Sodium 140 mmol/L (136-145)
[2023-04-03 06:56] LABS: Band 17 % (5-11); CellaVision Operator ID LAB.GE; Eosinophils 2 % (0-10); Hypochromia SLIGHT = 6-15 cells HPF (0-5); Lymphocytes 30 % (21-51); Macrocytosis SLIGHT = 6-15 cells HPF (0-5); Monocytes 14 % (0-10); Neutrophil 36 % (42-75); Platelet Adequacy Comment Platelets Normal; Polychromasia SLIGHT = 2-3 cells HPF (0-2); Total Cell Count 102
[2023-04-03] MEDS: Fidaxomicin 200 MG TAB PO SCH ×2 (08:02→20:33)
[2023-04-03] MEDS: sulfaSALAzine 500 MG TAB PO SCH (08:02)
[2023-04-03] MEDS: Cyanocobalamin (Vitamin B-12) 1,000 MCG TAB PO SCH (08:03)
[2023-04-03] MEDS: Furosemide 20 MG TAB PO SCH ×2 (08:04→20:31)
[2023-04-03] MEDS: Folic Acid 1 MG TAB PO SCH (08:04)
[2023-04-03] MEDS: Multivitamin W/ Minerals 1 TAB PO SCH (08:04)
[2023-04-03] MEDS: Losartan 25 MG TAB PO SCH (08:05)
[2023-04-03] MEDS: Leflunomide 10 mg Tablet PO SCH (08:05)
[2023-04-03] MEDS: Sertraline 100 MG TAB PO SCH (08:05)
[2023-04-03] MEDS: Aspirin Chewable 81 MG TAB PO SCH (08:06)
[2023-04-03] MEDS: Atorvastatin Calcium 40 MG TAB PO SCH (08:06)
[2023-04-03] MEDS: Amlodipine 10 MG TAB PO SCH (08:06)
[2023-04-03] MEDS: Saccharomyces boulardii 250 MG CAP PO SCH (08:06)
[2023-04-03] MEDS: CO Q-10 CAPSULE 100 MG PO SCH (08:06)
[2023-04-03] MEDS: Meloxicam 15 MG TAB PO SCH (08:09)
[2023-04-03] MEDS: Ipratropium Bromide 0.06% Nasal Inhaler 15ml EA NARE SCH (08:10)
[2023-04-03] MEDS: Valproic Acid 250 MG CAP PO SCH (08:11)
[2023-04-03] MEDS ORDERED: Potassium Chloride 20 MEQ TAB PO SCH (09:00)
[2023-04-03] MEDS ORDERED: Potassium Chloride 20 MEQ in Premix Bag 1 BAG IVPB SCH (11:00)
[2023-04-03 13:25] LABS: Anion Gap 11 mmol/L (10-20); BUN (Urea Nitrogen) 15 mg/dL (9.8-20.1); Calc. Creatinine Clearance 49 mL/min (70-130); Calcium 9.2 mg/dL (7.8-10.44); Carbon Dioxide 28 mmol/L (23-31); Chloride 105 mmol/L (98-107); Estimated GFR 75; Glucose 102 mg/dL (83-110); Potassium 3.7 mmol/L (3.5-5.1); Sodium 140 mmol/L (136-145)
[2023-04-03] MEDS: Latanoprost 0.005% Ophth Soln 2.5 ml Bottle EA EYE SCH (20:31)
[2023-04-03] MEDS: Donepezil HCl 5 MG TAB PO SCH (20:31)
[2023-04-03] MEDS: Montelukast Sodium 10 mg Tablet PO SCH (20:31)
[2023-04-04] MEDS: Acetaminophen 325 MG TAB PO SCH ×4 (05:34→23:00)
[2023-04-04 06:13] LABS: Anion Gap 12 mmol/L (10-20); BUN (Urea Nitrogen) 20 mg/dL (9.8-20.1); Calc. Creatinine Clearance 43 mL/min (70-130); Calcium 9.5 mg/dL (7.8-10.44); Carbon Dioxide 26 mmol/L (23-31); Chloride 102 mmol/L (98-107); Estimated GFR 65; Glucose 95 mg/dL (83-110); Potassium 3.7 mmol/L (3.5-5.1); Sodium 136 mmol/L (136-145)
[2023-04-04 07:51] LABS: #Basophils 0.1 thou/uL (0.0-0.2); #Eosinphils 0.2 thou/uL (0.0-0.7); #Neutrophils 2.9 thou/uL (1.40-6.50); %Basophils 1.2 % (0.0-1.0); %Lymphocytes 27.1 % (21.0-51.0); %Monocytes 16.9 % (0.0-10.0); %Neutrophils 51.4 % (42.0-75.0); Hemoglobin 9.8 g/dL (12.0-16.0); Mean Corpuscular HGB CONC 31.5 g/dL (32.0-36.0); Mean Corpuscular Hemoglobin 32.8 pg (27.0-31.0); Mean Platelet Volume 10.4 fL (7.4-10.4); Platelet Count 281 10x3/uL (130-400); RBC Distribution Width 15.3 % (11.5-14.5); Red Blood Cell (RBC) Count 2.99 mill/uL (4.20-5.40); White Blood Cell (WBC) Count 5.6 10x3/uL (4.8-10.8)
[2023-04-04] MEDS: CO Q-10 CAPSULE 100 MG PO SCH (09:09)
[2023-04-04] MEDS: Leflunomide 10 mg Tablet PO SCH (09:10)
[2023-04-04] MEDS: Cyanocobalamin (Vitamin B-12) 1,000 MCG TAB PO SCH (09:10)
[2023-04-04] MEDS: Folic Acid 1 MG TAB PO SCH (09:10)
[2023-04-04] MEDS: Aspirin Chewable 81 MG TAB PO SCH (09:10)
[2023-04-04] MEDS: sulfaSALAzine 500 MG TAB PO SCH (09:10)
[2023-04-04] MEDS: Atorvastatin Calcium 40 MG TAB PO SCH (09:10)
[2023-04-04] MEDS: Multivitamin W/ Minerals 1 TAB PO SCH (09:11)
[2023-04-04] MEDS: Amlodipine 10 MG TAB PO SCH (09:11)
[2023-04-04] MEDS: Sertraline 100 MG TAB PO SCH (09:12)
[2023-04-04] MEDS: Saccharomyces boulardii 250 MG CAP PO SCH (09:13)
[2023-04-04] MEDS: Furosemide 20 MG TAB PO SCH ×2 (09:13→21:17)
[2023-04-04] MEDS: Losartan 25 MG TAB PO SCH (09:13)
[2023-04-04] MEDS: Fidaxomicin 200 MG TAB PO SCH ×2 (09:13→21:17)
[2023-04-04] MEDS: Meloxicam 15 MG TAB PO SCH (09:14)
[2023-04-04] MEDS: Ipratropium Bromide 0.06% Nasal Inhaler 15ml EA NARE SCH (09:16)
[2023-04-04] MEDS: Valproic Acid 250 MG CAP PO SCH (09:16)
[2023-04-04 12:59] LABS: Magnesium 1.7 mg/dL (1.6-2.6)
[2023-04-04] MEDS: Montelukast Sodium 10 mg Tablet PO SCH (21:17)
[2023-04-04] MEDS: Donepezil HCl 5 MG TAB PO SCH (21:17)
[2023-04-04] MEDS: Latanoprost 0.005% Ophth Soln 2.5 ml Bottle EA EYE SCH (21:18)
[2023-04-05] MEDS: Acetaminophen 325 MG TAB PO SCH (06:16)
[2023-04-05 06:42] LABS: #Basophils 0.1 thou/uL (0.0-0.2); #Eosinphils 0.2 thou/uL (0.0-0.7); #Neutrophils 2.8 thou/uL (1.40-6.50); %Basophils 1.1 % (0.0-1.0); %Eosinophils 3.4 % (0.0-10.0); %Lymphocytes 27.1 % (21.0-51.0); %Monocytes 17.8 % (0.0-10.0); %Neutrophils 50.2 % (42.0-75.0); Hemoglobin 9.8 g/dL (12.0-16.0); Mean Corpuscular HGB CONC 31.7 g/dL (32.0-36.0); Mean Corpuscular Hemoglobin 31.9 pg (27.0-31.0); Mean Platelet Volume 10.5 fL (7.4-10.4); Platelet Count 284 10x3/uL (130-400); RBC Distribution Width 15.1 % (11.5-14.5); Red Blood Cell (RBC) Count 3.07 mill/uL (4.20-5.40); White Blood Cell (WBC) Count 5.6 10x3/uL (4.8-10.8)
[2023-04-05 06:46] LABS: Mean Corpuscular Volume 100.7 fl (78.0-98.0)
[2023-04-05 07:16] LABS: Anion Gap 13 mmol/L (10-20); BUN (Urea Nitrogen) 22 mg/dL (9.8-20.1); Calc. Creatinine Clearance 44 mL/min (70-130); Calcium 9.8 mg/dL (7.8-10.44); Carbon Dioxide 27 mmol/L (23-31); Chloride 102 mmol/L (98-107); Estimated GFR 67; Glucose 97 mg/dL (83-110); Potassium 3.8 mmol/L (3.5-5.1); Sodium 138 mmol/L (136-145)
[2023-04-05] MEDS: Aspirin Chewable 81 MG TAB PO SCH (09:26)
[2023-04-05] MEDS: CO Q-10 CAPSULE 100 MG PO SCH (09:26)
[2023-04-05] MEDS: Amlodipine 10 MG TAB PO SCH (09:26)
[2023-04-05] MEDS: Losartan 25 MG TAB PO SCH (09:26)
[2023-04-05] MEDS: sulfaSALAzine 500 MG TAB PO SCH (09:26)
[2023-04-05] MEDS: Furosemide 20 MG TAB PO SCH (09:28)
[2023-04-05] MEDS: Leflunomide 10 mg Tablet PO SCH (09:29)
[2023-04-05] MEDS: Folic Acid 1 MG TAB PO SCH (09:29)
[2023-04-05] MEDS: Multivitamin W/ Minerals 1 TAB PO SCH (09:29)
[2023-04-05] MEDS: Atorvastatin Calcium 40 MG TAB PO SCH (09:29)
[2023-04-05] MEDS: Cyanocobalamin (Vitamin B-12) 1,000 MCG TAB PO SCH (09:29)
[2023-04-05] MEDS: Sertraline 100 MG TAB PO SCH (09:30)
[2023-04-05] MEDS: Saccharomyces boulardii 250 MG CAP PO SCH (09:31)
[2023-04-05] MEDS: Meloxicam 15 MG TAB PO SCH (09:31)
[2023-04-05] MEDS: Valproic Acid 250 MG CAP PO SCH (09:32)
[2023-04-05] MEDS: Ipratropium Bromide 0.06% Nasal Inhaler 15ml EA NARE SCH (09:33)
[2023-04-05] MEDS: Fidaxomicin 200 MG TAB PO SCH (10:46)
[2023-04-05 13:56] VITALS: BP 118/73; TEMP 98.2
[2023-04-05] MEDS ORDERED: Fidaxomicin 200 MG TAB PO SCH (21:00)
== END 2023-04-05 13:46 | DRG 373 ==
LOC: ERS 12:16 → ERHOLD 14:55 → T4-B 19:13 → OBSVTOIN 04-02 11:46
PROVIDERS: ADMIT Family Medicine; ATTEND Family Medicine
DX: A04.72 Enterocolitis due to Clostridium difficile, not specified as recurrent (principal); K21.9 Gastro-esophageal reflux disease without esophagitis; I12.9 Hypertensive chronic kidney disease with stage 1 through stage 4 chronic kidney disease, or unspecified chronic kidney disease; D63.1 Anemia in chronic kidney disease; I25.10 Atherosclerotic heart disease of native coronary artery without angina pectoris; E78.5 Hyperlipidemia, unspecified; J44.9 Chronic obstructive pulmonary disease, unspecified; M06.9 Rheumatoid arthritis, unspecified; E03.9 Hypothyroidism, unspecified; F41.9 Anxiety disorder, unspecified; F32.A Depression, unspecified; N18.30 Chronic kidney disease, stage 3 unspecified; Z96.651 Presence of right artificial knee joint; E83.42 Hypomagnesemia; M19.90 Unspecified osteoarthritis, unspecified site; E87.6 Hypokalemia; H40.9 Unspecified glaucoma; Z20.822 Contact with and (suspected) exposure to COVID-19; I08.3 Combined rheumatic disorders of mitral, aortic and tricuspid valves; R01.1 Cardiac murmur, unspecified; Z79.82 Long term (current) use of aspirin; Z79.899 Other long term (current) drug therapy; Z79.51 Long term (current) use of inhaled steroids; Z98.890 Other specified postprocedural states; Z95.1 Presence of aortocoronary bypass graft; Z90.710 Acquired absence of both cervix and uterus
CPT/HCPCS: 36415; 71045; 80048; 80053; 81001; 82306; 82728; 83540; 83550; 83605; 83690; 83735; 83880; 84443; 84484; 85025; 85610; 85730; 87086; 87324; 87449; 87505; 93005; 93010; 93306; 96365; 96372; G0378; J1650; J3475; J3480